=== PATIENT | female | born 1970 | race Native Hawaiian/Other Pacific Islander ===

== ENCOUNTER 2022-07-25 09:44 | Emergency (ER) | payer OTHER ==
[~2022-07-25] VITALS: Ht 172.7 cm; Wt 63.5 kg
[2022-07-25 09:49] VITALS: BP 120/77; TEMP 98.8
[2022-07-25 10:36] LABS: PLATELET COUNT 297 K/uL (152-353)
[2022-07-25 10:39] LABS: POTASSIUM 4.1 mmol/L (3.6-5.2)
== END 2022-07-25 12:07 | disposition home or self-care (01) ==
LOC: ED 09:44
PROVIDERS: Emergency Medicine
DX: K29.60 Other gastritis without bleeding (principal); J32.8 Other chronic sinusitis
CPT/HCPCS: 36415; 80053; 80307; 81002; 83690; 85027; 87502; 93005; 96361; 96374; 99284; J1885; J2270; J2405